=== PATIENT | male | born 1930 | race Caucasian/White ===

== ENCOUNTER 2017-06-18 09:41 | Inpatient (IN) | payer OTHER ==
[~2017-06-18] VITALS: Ht 180.3 cm; Wt 123.0 kg
--- NOTE | ~2017-06-18 | EKG ---
[address] [address] ELECTROCARDIOGRAM REPORT Name: DELORIS HARRIS Room #: 420-P ADM IN M.R.#: [id number] Admission: 06/18/17 Attend Phys: Anderson Lawrence Discharge: Date of : 30 Report #: [id number] THIS REPORT FOR: //name// [facility] ED Test Date: 2017-06-18 Test Time: 09:43:15 Pat Name: DELORIS HARRIS Department: Room: [facility] Gender: M Information Assurance Engineer: CHEKO : 1930 Requested By: Lisa Cunningham Order Number: [id number] MD: Krystian Childs Measurements Intervals [place] Rate: 84 P: SD: QRS: -20 QRSD: 95 T: 56 QT: 381 QTc: 451 Interpretive Statements Atrial fibrillation Borderline left axis deviation Anterior infarct, old Compared to ECG 02/12/2015 16:44:02 No significant changes Electronically Signed On 06-18-2017 22:36:43 CDT by Krystian Childs [email or web address] <ELECTRONICALLY SIGNED> By: Krystian Childs MD 06/18/17 2236 2 2 Krystian Childs MD /SUNSHINE
[~2017-06-18 09:41] MED LIST: ASPIRIN EC325 M1 PO; ATORVASTATIN CA40 MG PO; B-12 DOTS500 MCG PO; CLOPIDOGREL75 MG PO; COLACE100 MG PO; COREG25 MG PO; COZAAR 50 MG TA50 M2 PO; CYCLOBENZAPRINE5 MG PO; DULCOLAX5 MG PO; ENOXAPARIN30 MG/0.1 SUBQ; FLOMAX0.4 MG PO; FOLIC ACID1 MG PO; HYDROCODON-ACE1 EAC7 PO; LASIX 40 MG TAB40 M2 PO; LEVEMIR SUBQ; LISINOPRIL20 MG PO; LOPRESSOR50 PO; MIRALAX17 GM PO; NORVASC10 MG PO; NOVOLOG100 UNIT/1 SUBQ; PEPCID20 MG PO; POTASSIUM20 PO; PROTONIX40 M1 PO; REGLAN 10 MG TA10 MG PO; VITAMIN B-1100 M1 PO; VITAMIN B-12500 MCG PO; ZOLOFT25 MG PO
[2017-06-18 09:52] VITALS: BP 148/80
[2017-06-18 10:16] LABS: HEMATOCRIT 38.4 % (42.0-52.0); HEMOGLOBIN 12.6 gm/dL (14.0-18.0); MCHC 32.9 g/dL (28.0-37.0); MCV 91.1 fL (80.0-100.0); RBC 4.21 mil/uL (4.50-6.00); RDW 15.5 % (10.5-14.5); WBC 10.4 thou/uL (4.0-11.0)
[2017-06-18 10:38] LABS: CREATININE 1.8 mg/dL (0.7-1.3); POTASSIUM 4.3 mmol/L (3.5-5.1)
[2017-06-18 10:46] LABS: ALBUMIN 3.3 g/dL (3.4-5.0); TOTAL BILIRUBIN 0.7 mg/dL (<0.1-1.0); TOTAL PROTEIN 6.1 g/dL (6.4-8.2); TROPONIN-I 0.04 ng/mL (<0.04-0.07)
[2017-06-18 14:01] VITALS: BP 146/78
[2017-06-18 14:40] VITALS: BP 159/81
[2017-06-18 15:02] VITALS: BP 177/90
[2017-06-18 19:27] VITALS: BP 182/86
[2017-06-19 03:19] VITALS: BP 127/72
[2017-06-19 07:01] LABS: ALBUMIN 3.1 g/dL (3.4-5.0); CALCIUM 8.5 mg/dL (8.5-10.1); CREATININE 1.8 mg/dL (0.7-1.3); PHOSPHORUS 3.9 mg/dL (2.5-4.9); POTASSIUM 3.8 mmol/L (3.5-5.1); TROPONIN-I 0.04 ng/mL (<0.04-0.07)
[2017-06-19 08:26] VITALS: BP 157/75
[2017-06-19 17:19] VITALS: BP 164/88
[2017-06-19 20:45] VITALS: BP 152/76
[2017-06-20 04:07] VITALS: BP 163/82
[2017-06-20 06:24] LABS: ALBUMIN 3.1 g/dL (3.4-5.0); CALCIUM 8.5 mg/dL (8.5-10.1); CREATININE 1.9 mg/dL (0.7-1.3); PHOSPHORUS 3.4 mg/dL (2.5-4.9); POTASSIUM 3.8 mmol/L (3.5-5.1)
[2017-06-20 08:36] VITALS: BP 138/78
[2017-06-20] MEDS ORDERED: VANCOMYCIN HCL10 GM PO (10:29)
[2017-06-20] MEDS ORDERED: ACETAMINOPHEN325 M1 PO (10:30)
[2017-06-20] MEDS ORDERED: LASIX 40 MG TAB40 M1 PO (10:30)
[2017-06-20] MEDS ORDERED: MIRALAX17 GM PO (10:31)
[2017-06-20 17:25] VITALS: BP 187/92
[2017-06-20 19:33] VITALS: BP 151/74
[2017-06-21 07:14] VITALS: BP 174/79
[2017-06-21 12:15] VITALS: BP 155/80
[2017-06-21 14:55] VITALS: BP 174/79
[2017-06-21 20:19] VITALS: BP 167/77
[2017-06-22 04:34] VITALS: BP 163/87
[2017-06-22 08:27] VITALS: BP 162/92
== END 2017-06-22 16:51 | DRG 371 ==
LOC: ER 09:41 → EROBS 12:38 → 4E 12:38 → EROBS 12:45 → 4E 14:40
PROVIDERS: Hospitalist; Physician Assistant
DX: A04.72 Enterocolitis due to Clostridium difficile, not specified as recurrent (principal); I50.23 Acute on chronic systolic (congestive) heart failure; I13.0 Hypertensive heart and chronic kidney disease with heart failure and stage 1 through stage 4 chronic kidney disease, or unspecified chronic kidney disease; E11.22 Type 2 diabetes mellitus with diabetic chronic kidney disease; N18.3 Chronic kidney disease, stage 3 (moderate); E78.5 Hyperlipidemia, unspecified; I48.91 Unspecified atrial fibrillation; F03.90 Unspecified dementia, unspecified severity, without behavioral disturbance, psychotic disturbance, mood disturbance, and anxiety; Z79.4 Long term (current) use of insulin; Z79.01 Long term (current) use of anticoagulants; I25.2 Old myocardial infarction; Z90.49 Acquired absence of other specified parts of digestive tract; Z85.028 Personal history of other malignant neoplasm of stomach; Z79.899 Other long term (current) drug therapy; Z91.19 Patient's noncompliance with other medical treatment and regimen
CPT/HCPCS: 10084

== ENCOUNTER → 2017-06-26 | Emergency (ER) | payer OTHER ==
[~2017-06-26] VITALS: Ht 180.3 cm; Wt 117.9 kg
[~2017-06-26] MED LIST changes: +ACETAMINOPHEN325 M1 PO; +LASIX 40 MG TAB40 M1 PO; +NORCO 5-325 TA1 EACH PO; +ROBITUSSIN100 MG/53 PO; +VANCOMYCIN HCL10 GM PO
--- NOTE | ~2017-06-26 | EKG ---
[place] [address] [facility] [place] [address] ELECTROCARDIOGRAM REPORT Name: DELORIS HARRIS Gabby [id number] Admission: 06/26/17 Attend Phys: Discharge: Date of : 30 Report #: [id number] THIS REPORT FOR: //name// [facility] ED Test Date: 2017-06-26 Test Time: 19:42:55 Pat Name: DELORIS HARRIS Department: Room: Gender: M Crystalizer Operator: [id number] : 1930 Requested By: Aaliyah Funk Order Number: [id number] MD: Krystian Childs Measurements Intervals [place] Rate: 50 P: ME: QRS: -13 QRSD: 110 T: 103 QT: 419 QTc: 382 Interpretive Statements Atrial fibrillation Inferior infarct, old Anterior infarct, old Lateral leads are also involved Compared to ECG 06/18/2017 09:43:15 No significant changes Electronically Signed On 06-26-2017 21:24:21 CDT by Krystian Childs [email or web address] <ELECTRONICALLY SIGNED> By: Krystian Childs MD 06/26/172123 41 41 Krystian Childs MD /SUNSHINE
[2017-06-26 20:17] LABS: HEMOGLOBIN 11.6 gm/dL (14.0-18.0); MCH 30.7 pg (26.0-34.0); MCV 90.3 fL (80.0-100.0); PLATELET COUNT 174 thou/uL (150-400); RBC 3.77 mil/uL (4.50-6.00); RDW 15.3 % (10.5-14.5); WBC 6.8 thou/uL (4.0-11.0)
[2017-06-26 20:20] LABS: MANUAL DIFF YES
[2017-06-26 20:27] LABS: ANION GAP 6 mmol/L (7-16); BUN 26 mg/dL (7-18); CHLORIDE 108 mmol/L (98-107); CO2 29 mmol/L (21-32); GLUCOSE 136 mg/dL (74-106); POTASSIUM 4.1 mmol/L (3.5-5.1); SODIUM 143 mmol/L (136-145)
[2017-06-26 20:36] LABS: ALBUMIN 3.1 g/dL (3.4-5.0); ALKALINE PHOSPHATASE 127 U/L (46-116); MAGNESIUM 2.3 mg/dL (1.8-2.4); SGOT 17 U/L (15-37); SGPT 21 U/L (30-65); TOTAL BILIRUBIN 0.4 mg/dL (<0.1-1.0); TOTAL PROTEIN 5.6 g/dL (6.4-8.2); TROPONIN-I < 0.04 ng/mL (<0.04-0.07)
[2017-06-26 20:44] LABS: ABSOLUTE NEUTROPHILS 4.2 thou/uL (1.4-8.2); TOTAL CELL COUNT 100
== END ==
LOC: ER 19:37
PROVIDERS: Nurse Practitioner Family
DX: R07.89 Other chest pain (principal); I12.9 Hypertensive chronic kidney disease with stage 1 through stage 4 chronic kidney disease, or unspecified chronic kidney disease; E11.22 Type 2 diabetes mellitus with diabetic chronic kidney disease; N18.3 Chronic kidney disease, stage 3 (moderate); F41.9 Anxiety disorder, unspecified; K46.9 Unspecified abdominal hernia without obstruction or gangrene; M25.551 Pain in right hip; F03.90 Unspecified dementia, unspecified severity, without behavioral disturbance, psychotic disturbance, mood disturbance, and anxiety; I48.91 Unspecified atrial fibrillation; E78.00 Pure hypercholesterolemia, unspecified; I25.2 Old myocardial infarction; Z85.028 Personal history of other malignant neoplasm of stomach; Z91.14 Patient's other noncompliance with medication regimen; Z98.890 Other specified postprocedural states; Z79.4 Long term (current) use of insulin

== ENCOUNTER 2017-08-14 06:20 | Emergency (ER) | payer OTHER ==
[~2017-08-14] VITALS: Ht 180.3 cm; Wt 122.5 kg
--- NOTE | ~2017-08-14 | EKG ---
[address] [address] ELECTROCARDIOGRAM REPORT Name: KIMBERLYDELORIS Gabby Room #: DEP [place]#: [id number] Admission: 08/14/17 Attend Phys: Discharge: 08/14/17 Date of : 30 Report #: [id number] THIS REPORT FOR: //name// [facility] ED Test Date: 2017-08-14 Test Time: 06:22:35 Pat Name: DELORIS HARRIS Department: Room: Gender: Neon Technician: 99 : 1930 Requested By: Riki Driver Order Number: [id number] MD: Krystian Childs Measurements Intervals [place] Rate: 57 P: AR: QRS: 52 QRSD: 119 T: 67 QT: 434 QTc: 423 Interpretive Statements Atrial fibrillation Nonspecific intraventricular conduction delay Anterior infarct, old Electronically Signed On 08-15-2017 12:21:10 ENGINEERING GROUP LEADER by Krystian Childs [email or web address] <ELECTRONICALLY SIGNED> By: Krystian Childs MD 08/15/17 1221 0622 06 Krystian Childs MD /EPI
[~2017-08-14 06:20] MED LIST changes: +AMLODIPINE BESYL5 M1 PO; +CLEARLAX17 GM PO; +DEMADEX 2020 MG/1 TA PO; +KLOR-CON 1010 MEQ PO; +LASIX 20 MG TAB20 MG PO; +PERCOCET PO
[2017-08-14] MEDS ORDERED: GLUCOPHAGE850 MG PO (06:44)
[2017-08-14 07:33] LABS: ABSOLUTE NEUTROPHILS 6.3 thou/uL (1.4-8.2); BASOPHILS 0.4 % (0.0-2.0); EOSINOPHILS 2.7 % (0.0-3.0); HEMATOCRIT 38.2 % (42.0-52.0); HEMOGLOBIN 12.2 gm/dL (14.0-18.0); LYMPHOCYTES 14.9 % (24.0-44.0); MCH 28.7 pg (26.0-34.0); MCV 89.7 fL (80.0-100.0); MONOCYTES 10.5 % (1.0-8.0); PLATELET COUNT 179 thou/uL (150-400); POLYS 71.5 % (36.0-66.0); RBC 4.26 mil/uL (4.50-6.00); RDW 16.2 % (10.5-14.5); WBC 8.8 thou/uL (4.0-11.0)
[2017-08-14 07:42] LABS: MANUAL DIFF NO
[2017-08-14 07:50] LABS: ANION GAP 7 mmol/L (7-16); BUN 25 mg/dL (7-18); CALCIUM 9.1 mg/dL (8.5-10.1); CHLORIDE 105 mmol/L (98-107); CO2 31 mmol/L (21-32); CREATININE 1.6 mg/dL (0.7-1.3); GLUCOSE 111 mg/dL (74-106); POTASSIUM 3.2 mmol/L (3.5-5.1); SODIUM 143 mmol/L (136-145)
[2017-08-14 07:58] LABS: APTT 24.9 Seconds (24.5-32.8); INR 1.1; PROTIME 10.9 Seconds (9.3-11.4)
[2017-08-14 07:59] LABS: ALBUMIN 3.4 g/dL (3.4-5.0); ALKALINE PHOSPHATASE 137 U/L (46-116); MAGNESIUM 1.8 mg/dL (1.8-2.4); SGOT 17 U/L (15-37); SGPT 14 U/L (30-65); TOTAL BILIRUBIN 0.8 mg/dL (<0.1-1.0); TOTAL PROTEIN 6.5 g/dL (6.4-8.2); TROPONIN-I < 0.04 ng/mL (<0.06)
[2017-08-14] MEDS ORDERED: ZOFRAN ODT4 MG DISSOLVE (08:16)
[2017-08-15] MEDS ORDERED: NYAMYC15 GM TOP (22:14)
== END 2017-08-14 11:06 ==
LOC: ER 06:20
PROVIDERS: Emergency Medicine
DX: I25.10 Atherosclerotic heart disease of native coronary artery without angina pectoris (principal); K43.9 Ventral hernia without obstruction or gangrene; E11.22 Type 2 diabetes mellitus with diabetic chronic kidney disease; I12.9 Hypertensive chronic kidney disease with stage 1 through stage 4 chronic kidney disease, or unspecified chronic kidney disease; N18.3 Chronic kidney disease, stage 3 (moderate); E78.5 Hyperlipidemia, unspecified; I48.91 Unspecified atrial fibrillation; F03.90 Unspecified dementia, unspecified severity, without behavioral disturbance, psychotic disturbance, mood disturbance, and anxiety; Z86.2 Personal history of diseases of the blood and blood-forming organs and certain disorders involving the immune mechanism; Z90.49 Acquired absence of other specified parts of digestive tract; Z79.4 Long term (current) use of insulin

== ENCOUNTER 2017-08-15 17:03 | Emergency (ER) | payer OTHER ==
[~2017-08-15] VITALS: Ht 180.3 cm; Wt 117.9 kg
[~2017-08-15 17:03] MED LIST changes: +GLUCOPHAGE850 MG PO; +ZOFRAN ODT4 MG DISSOLVE
[2017-08-15 20:12] LABS: ABSOLUTE NEUTROPHILS 6.5 thou/uL (1.4-8.2); BASOPHILS 0.6 % (0.0-2.0); EOSINOPHILS 2.5 % (0.0-3.0); HEMATOCRIT 37.6 % (42.0-52.0); HEMOGLOBIN 12.1 gm/dL (14.0-18.0); LYMPHOCYTES 14.3 % (24.0-44.0); MANUAL DIFF NO; MCH 28.6 pg (26.0-34.0); MCHC 32.1 g/dL (28.0-37.0); MCV 89.1 fL (80.0-100.0); MONOCYTES 9.5 % (1.0-8.0); PLATELET COUNT 178 thou/uL (150-400); POLYS 73.1 % (36.0-66.0); RBC 4.21 mil/uL (4.50-6.00); RDW 15.7 % (10.5-14.5); WBC 8.9 thou/uL (4.0-11.0)
[2017-08-15 20:15] LABS: CALCIUM 9.5 mg/dL (8.5-10.1); CREATININE 1.6 mg/dL (0.7-1.3); POTASSIUM 3.7 mmol/L (3.5-5.1)
[2017-08-15 20:18] LABS: ABG SAMPLE TYPE ARTERIAL; BE(vivo) 2.1 mmol/L (-2 to +3); O2(CT) 16.7 mL/dL (15.0-23.0); O2Hb 96.7 % (92.0-98.0); PCO2 43.2 mmHg (35.0-45.0); PO2 101.9 mmHg (80.0-100.0); pH 7.413 (7.360-7.450); sO2 97.7 % (92.0-98.0); tCO2 28.3 mmol/L (24.0-30.0)
[2017-08-15 20:19] LABS: STICK SITE LRA
[2017-08-15 20:21] LABS: ALBUMIN 3.3 g/dL (3.4-5.0); DIRECT BILIRUBIN 0.1 mg/dL (<0.1-0.3); TOTAL BILIRUBIN 0.5 mg/dL (<0.1-1.0); TOTAL PROTEIN 6.3 g/dL (6.4-8.2)
[2017-08-15] MEDS ORDERED: NYAMYC15 GM TOP (22:14)
[2017-08-20] MEDS ORDERED: SENNA8.6 MG PO (13:16)
[2017-08-20] MEDS ORDERED: COLACE100 MG PO (13:16)
[2017-08-20] MEDS ORDERED: DEMADEX20 MG PO (13:21)
== END 2017-08-15 22:30 ==
LOC: ER 17:03
PROVIDERS: Emergency Medicine
DX: R07.89 Other chest pain (principal); G89.29 Other chronic pain; R10.10 Upper abdominal pain, unspecified; R11.0 Nausea; I12.9 Hypertensive chronic kidney disease with stage 1 through stage 4 chronic kidney disease, or unspecified chronic kidney disease; N18.3 Chronic kidney disease, stage 3 (moderate); E11.22 Type 2 diabetes mellitus with diabetic chronic kidney disease; I48.91 Unspecified atrial fibrillation; I16.0 Hypertensive urgency; F03.90 Unspecified dementia, unspecified severity, without behavioral disturbance, psychotic disturbance, mood disturbance, and anxiety; E78.5 Hyperlipidemia, unspecified; Z90.49 Acquired absence of other specified parts of digestive tract; Z79.4 Long term (current) use of insulin; Z86.2 Personal history of diseases of the blood and blood-forming organs and certain disorders involving the immune mechanism

== ENCOUNTER 2017-08-29 02:06 | Emergency (ER) | payer OTHER ==
[~2017-08-29] VITALS: Ht 180.3 cm; Wt 108.9 kg
[~2017-08-29 02:06] MED LIST changes: +DEMADEX20 MG PO; +NYAMYC15 GM TOP; +SENNA8.6 MG PO
[2017-08-29 03:22] LABS: HEMATOCRIT 36.5 % (42.0-52.0); HEMOGLOBIN 11.8 gm/dL (14.0-18.0); MCH 28.8 pg (26.0-34.0); MCHC 32.3 g/dL (28.0-37.0); MCV 89.4 fL (80.0-100.0); PLATELET COUNT 191 thou/uL (150-400); RBC 4.09 mil/uL (4.50-6.00); RDW 16.3 % (10.5-14.5); WBC 7.3 thou/uL (4.0-11.0)
[2017-08-29 03:30] LABS: CALCIUM 8.7 mg/dL (8.5-10.1); CREATININE 1.5 mg/dL (0.7-1.3); POTASSIUM 3.5 mmol/L (3.5-5.1)
[2017-08-29 03:36] LABS: DIRECT BILIRUBIN 0.2 mg/dL (<0.1-0.3); TOTAL BILIRUBIN 0.6 mg/dL (<0.1-1.0); TOTAL PROTEIN 5.9 g/dL (6.4-8.2)
[2017-08-29 03:43] LABS: MANUAL DIFF YES
[2017-08-29 04:16] LABS: ANISOCYTOSIS 1+; POLYCHROMASIA OCCASIONAL; TOTAL CELL COUNT 100
[2017-08-29] MEDS ORDERED: BISACODYL SUPP10 MG RECTAL (04:59)
== END 2017-08-29 07:36 | disposition home or self-care (01) ==
LOC: ER 02:06
PROVIDERS: Emergency Medicine
DX: R10.31 Right lower quadrant pain (principal); K59.00 Constipation, unspecified; E11.9 Type 2 diabetes mellitus without complications; F03.90 Unspecified dementia, unspecified severity, without behavioral disturbance, psychotic disturbance, mood disturbance, and anxiety; C16.9 Malignant neoplasm of stomach, unspecified; I48.91 Unspecified atrial fibrillation; I12.9 Hypertensive chronic kidney disease with stage 1 through stage 4 chronic kidney disease, or unspecified chronic kidney disease; N18.3 Chronic kidney disease, stage 3 (moderate); E78.5 Hyperlipidemia, unspecified; I25.2 Old myocardial infarction; K81.9 Cholecystitis, unspecified; Z90.49 Acquired absence of other specified parts of digestive tract

== ENCOUNTER 2017-11-08 07:21 | Emergency (ER) | payer OTHER ==
[~2017-11-08] VITALS: Ht 182.9 cm; Wt 127.0 kg
[~2017-11-08 07:21] MED LIST changes: +BISACODYL SUPP10 MG RECTAL
[2017-11-08 08:41] VITALS: BP 153/92
== END 2017-11-08 08:42 ==
LOC: ER 07:21
DX: S00.03XA Contusion of scalp, initial encounter (principal); I12.9 Hypertensive chronic kidney disease with stage 1 through stage 4 chronic kidney disease, or unspecified chronic kidney disease; E11.22 Type 2 diabetes mellitus with diabetic chronic kidney disease; N18.3 Chronic kidney disease, stage 3 (moderate); Z79.4 Long term (current) use of insulin; E78.5 Hyperlipidemia, unspecified; I48.91 Unspecified atrial fibrillation; Z90.49 Acquired absence of other specified parts of digestive tract; V87.8XXA Person injured in other specified noncollision transport accidents involving motor vehicle (traffic), initial encounter; Y93.89 Activity, other specified; Y92.89 Other specified places as the place of occurrence of the external cause; Y99.8 Other external cause status

== ENCOUNTER 2017-11-17 09:50 | Inpatient (IN) | payer OTHER ==
[~2017-11-17] VITALS: Ht 165.1 cm; Wt 123.6 kg
--- NOTE | ~2017-11-17 | HC ---
[facility] [place] [address] CONSULTATION Name: DELORIS HARRIS JR Room #: 207-P [facility] IN .R.#: [id number] Admission: 11/17/17 Attend Phys: Marin Alford MD Discharge: Date of : 30 Report #: [id number] THIS REPORT FOR: //name// CC: Marin Hoyos REASON FOR CONSULTATION: I was asked to evaluate concerning sepsis. HISTORY OF PRESENT ILLNESS: The patient is an 87-year-old assisted resident who presents with a report of increasing shortness of breath associated with cough. He had some nausea and vomiting. No reported diarrhea. He has had some left lower quadrant abdominal discomfort. No recent antibiotics. No travel. The patient was a poor historian. Apparently recently fell, contusion to his right periorbital soft tissues. PAST MEDICAL HISTORY: Hypertension, diabetes, dementia, gastric cancer, atrial fibrillation, anemia, chronic kidney disease, hyperlipidemia, coronary artery disease, cholecystitis, and appendectomy. ALLERGIES: None known. MEDICATIONS: Included Zofran, Colace, senna, Demadex and Dulcolax. Also reported folic acid, aspirin, Flomax, insulin, multivitamin, Zoloft, Flexeril, Lipitor, Plavix, Cozaar, Coreg, Protonix, [place], and Glucophage. FAMILY HISTORY: Noncontributory. SOCIAL HISTORY: Nonsmoker, no significant alcohol intake. REVIEW OF SYSTEMS: The patient reports tenderness around his eye, lost one of his lower front teeth, no definite chest pain. Abdominal discomfort, no diarrhea, some vomiting, anorexia, no dysuria, he is incontinent of urine. PHYSICAL EXAMINATION: VITAL SIGNS: Temperature is 102.3, heart rate 98, respiratory rate 16, blood pressure 128/88, he is on 4 liters of oxygen per nasal cannula with an ABG showing a pO2 of 93, pCO2 of 37, pH 7.4. GENERAL: He was alert and cooperative. He was a bit confused, although could tell me he was from a assisted. HEENT: Remarkable for fractured tooth in the left lower anterior as well as contusion to his left periorbital soft tissues. NECK: Supple. LUNGS: Few crackles in the left base posteriorly. No consolidation. HEART: Regular, did not appreciate any murmur. ABDOMEN: Moderately obese, mild tenderness in the left lower quadrant. No rebound or guarding. He had significant intertrigo to his groin and perineum. GENITOURINARY: He [place] [address] CONSULTATION Name: DELORIS HARRIS Room #: 207-P [facility] IN ..#: [id number] Admission: 11/17/17 Attend Phys: Marin Alford MD Discharge: Date of : 30 Report #: [id number] EXTREMITIES: Otherwise unremarkable. NEUROLOGIC: Nonfocal. LABORATORY STUDIES: Sodium 143, potassium 3.4, bicarbonate 27, creatinine 1.6. Liver function test normal, although bilirubin of 2.2. Hemoglobin 11.5, platelet count 112,000, WBC 17.1 with 71% segs, 19% bands. BNP was 9997. Chest x-ray, left lower lobe infiltrate. Influenza antigen negative. Procalcitonin 0.5. IMPRESSION: An 87-year-old with sepsis, findings of some confusion, hypoxia, leukocytosis, left lower lobe infiltrate, some abdominal tenderness and intertrigo. Leukocytosis, thrombocytopenia, mild increase in his bilirubin, duration of which is not clear, healthcare-associated pneumonia versus influenza versus gastroenteritis or urinary tract source being entertained. Recommend screening for influenza with viral respiratory panel. Check blood cultures, urinalysis and urine culture. Place a Mcghee catheter. Treat his intertrigo. Follow up chest x-ray. Check an abdominal x-ray tonight. If symptoms persist in the abdomen, need a CT scan. Continue antibiotic coverage with vancomycin, Zosyn, Tamiflu, and fluconazole. <ELECTRONICALLY SIGNED> By: Riki Chapa MD 11/18/17 0832 [id number] Riki Chapa MD /nt
--- NOTE | ~2017-11-17 | EKG ---
[place] [address] [facility] [place] [address] ELECTROCARDIOGRAM REPORT Name: DELORIS HARRIS Room #: 207-P ADM IN M.R.#: [id number] Admission: 11/17/17 Attend Phys: Marin Alford MD Discharge: Date of : 30 Report #: [id number] THIS REPORT FOR: //name// [facility] ED Test Date: 2017-11-17 Test Time: 10:54:02 Pat Name: DELORIS HARRIS Department: Room: 207 Gender: M Kitchen Designer: [facility] : 1930 Requested By: Jonathan Barrientos Order Number: [id number] MD: Chano Jasso Measurements Intervals [place] Rate: 103 P: SC: QRS: -8 QRSD: 106 T: 4 QT: 338 QTc: 443 Interpretive Statements Atrial fibrillation Poor R wave progression Nonspecific ST and T wave abnormality Compared to ECG 08/20/2017 10:32:30 Sinus rhythm no longer present Nonspecific change in the ST and T-wave segments Electronically Signed On 11-18-2017 7:52:58 LICENSED CLUB MANAGER by Chano Jasso [email or web address] <ELECTRONICALLY SIGNED> By: Chano Jasso MD, [facility] 11/18/17 0752 1054 1054 Chano Jasso MD, [facility] /EPI
--- NOTE | ~2017-11-17 | HC ---
[facility] [place] [address] CONSULTATION Name: KIMBERLYDELORIS Pierre Room #: 202-P [facility]..#: [id number] Admission: 11/17/17 Attend Phys: Marin Alford MD Discharge: 11/25/17 Date of : 30 Report #: [id number] THIS REPORT FOR: //name// CC: Marin Hoyos DATE OF SERVICE: 11/18/2017 NEPHROLOGY CONSULTATION REASON FOR CONSULTATION: Elevated creatinine level. HISTORY OF PRESENT ILLNESS: This is an 87-year-old male who lives in a local custodial. He presented with dyspnea yesterday. Upon arrival in the Emergency Room yesterday morning, he had a fever to 102.3 and he remained febrile throughout most of the day yesterday. He got some broad-spectrum antibiotics. He got put on oxygen. It was thought he had some infiltrate on his chest x-ray. Today, he has been afebrile. So far, blood and urine cultures are negative. Viral studies looking for influenza and other markers are pending at this time. We are asked to see him for an elevated creatinine level. He came in with creatinine level of 1.6. Today, it is up to 2.3. The patient is not a very good historian. He does not remember ever being told about kidney problems in the past. 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 He does carry a diagnosis of some dementia, so much of this, otherwise, is obtained from his rather extensive medical records. Looking back 3 years, he has had multiple hospitalizations here at [facility]. He has always had an elevated creatinine level and he tends to run in the 1.5 to 1.7 range. He has been up to 2 on a couple of different occasions. He is up to 2.3 today. He carries a long history of hypertension as well as some type 2 diabetes. He has a urinalysis which shows proteinuria, and in fact, he has had proteinuria on dipstick on every urinalysis he has had here over the past several years. Proteinuria has never been quantified. In addition, I reviewed a recent CT scan done last fall in 05/2017. He has a dramatically atrophic left kidney. Right kidney also was somewhat thinned, but not nearly as atrophic as the left. He has numerous acquired cysts in each kidney. He has extensive atherosclerotic vascular disease based on reviewing of his aorta. The patient is unaware of nephrolithiasis, urinary tract infections or hematuria. No other proteinuria. PAST MEDICAL HISTORY: Long-standing dementia and he lives in a local care center. He has had a history of hypertension as well as some type 2 diabetes, duration is unknown. He has a history of coronary artery disease, congestive heart failure, prior urinary tract infections as well as an admission for pneumonia. [address] [address] CONSULTATION Name: KIMBERLYDELORIS Gabby KOTHARI Room #: 202-P DIS IN .R.#: [id number] Admission: 11/17/17 Attend Phys: Marin Alford MD Discharge: 11/25/17 Date of : 30 Report #: [id number] MEDICATIONS: On admission appear to include torsemide 20 mg daily, carvedilol 12.5 mg b.i.d., losartan 50 mg daily, metformin 850 mg b.i.d., pantoprazole 40 mg daily, cyanocobalamin daily, Plavix 75 mg daily, atorvastatin 40 mg daily, Flexeril 10 mg p.r.n., sertraline 25 mg daily, thiamine 100 mg daily, both long-acting and short-acting insulin, tamsulosin 0.4 mg daily, aspirin 325 mg daily, folic acid 1 mg daily and some p.r.n. medications. ALLERGIES: No known medical allergies. FAMILY HISTORY: Unavailable. SOCIAL HISTORY: The patient has been in the custodial, duration is unknown. 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 REVIEW OF SYSTEMS: He says his appetite is poor. He gets nauseated when he eats too much. Denies vomiting. Unaware of diarrhea. Apparently, he was having difficulty voiding. Currently, he has a Mcghee catheter in place. PHYSICAL EXAMINATION: GENERAL: Elderly, demented gentleman in no acute distress at this time. VITAL SIGNS: Most recent blood pressure 144/68, heart rate 65, temperature 98.0, respiratory rate 18 and oxygen saturation 97%. HEENT EXAMINATION: Shows pupils are 3 mm and reactive. Sclerae nonicteric. Oral mucosa is dry. NECK: Neck veins are not distended. Neck is supple. CHEST: Shows fairly good excursion bilaterally. I did not hear much in the way of rales, rhonchi or wheezes at this time. HEART: Irregular rhythm and rate. Monitor shows atrial fibrillation. ABDOMEN: Obese. He has a ventral hernia in the supraumbilical location. It is mildly tender, although certainly there is no guarding. Otherwise, mild diffuse abdominal tenderness. I am unable to palpate organomegaly or masses. EXTREMITIES: Show no peripheral edema. He has extensive intertriginous tinea, evident mostly in the inguinal areas. DIAGNOSTIC DATA: Chest x-ray is reviewed, which shows mild diffuse infiltrates. I also reviewed his CT scan from 05/2017 and pertinent findings as noted above. LABORATORY DATA: Lab from today, sodium 140, potassium 3.7, chloride 104, bicarbonate 23, BUN 36, creatinine 2.3, glucose 242 and calcium 8.6. Magnesium 1.7. Total protein 6.1. Albumin 3.0. Troponin 0.05. White count 18.1, hemoglobin 10.7, hematocrit 33.1 and platelets 94,000. Urinalysis showed specific gravity 1.025, pH 5.0, protein 2+, trace ketones and trace blood, with a fairly unremarkable microscopic exam. Blood gas on admission, pH of 7.41, pCO2 of 37.6, pO2 of 93.4 and a lactate at that time of 3.39. [address] [address] CONSULTATION Name: DELORIS HARRIS Room #: 202-P [facility] IN [facility].#: [id number] Admission: 11/17/17 Attend Phys: Marin Alford MD Discharge: 11/25/17 Date of : 30 Report #: [id number] ASSESSMENT: 1. Acute kidney injury. He has had half a point rise in his creatinine over his baseline. He came in febrile and sick, which appears to be all a respiratory component. I think this is only hemodynamic change related to his acute illness. He has not received nephrotoxins that I can find. His last contrast exposure appears to be months ago. I would note he was on some metformin and had an elevated lactate and the metformin has appropriately been held, so the lactate should clear from that. He needs intake of fluid to maintain adequate volume status. Urine output needs to be monitored. I do not think he needs additional diuresis at this time. He should stabilize readily. 2. Chronic kidney disease stage 3 with an atrophic left kidney, somewhat thin cortex on the right kidney and numerous acquired cysts. These are all consistent with very long-standing changes. This is also borne out by looking at his labs. Again, long-term blood pressure management is fine. He has okay to stay on the losartan. We do need to quantify proteinuria. 3. Chronic atrial fibrillation. 4. Acute pulmonary infection with fever and infiltrate, on broad-spectrum antibiotics, although it may well be viral. He does not appear to be in extremis at this time. He is oxygenating better as well as the fact that his fever is down. 5. Long-standing diabetes mellitus. 6. Long-standing hypertension. PLAN: 1. Obviously continue treatment for his pulmonary symptoms. 2. We will follow intake and output. 3. Repeat labs as I expect his creatinine level will drop back down to its baseline. 4. Check urine protein-creatinine ratio. 5. We do not need to image his kidneys more as they were imaged just 6 months ago with the findings as noted above. 6. We will follow along with the care of this patient. <ELECTRONICALLY SIGNED> By: Deep Main MD 12/02/17 1142 193 0113 Albert Kerr MD /nt
--- NOTE | ~2017-11-17 | EKG ---
[place] [address] [facility] [place] [address] ELECTROCARDIOGRAM REPORT Name: DLEORIS HARRIS Room #: 202-P ADM IN M.R.#: [id number] Admission: 11/17/17 Attend Phys: Marin Alford MD Discharge: Date of : 30 Report #: [id number] THIS REPORT FOR: //name// [facility] Test Date: 2017-11-22 Test Time: 14:37:00 Pat Name: DELORIS HARRIS Department: Room: 202 Gender: M Publications Inspector: [email or web address] : 1930 Requested By: Marin Alford Order Number: [id number] MD: Chano Jasso Measurements Intervals [place] Rate: 54 P: [place]: QRS: 29 QRSD: 97 T: 60 QT: 436 QTc: 414 Interpretive Statements Atrial fibrillation Poor R wave progression Nonspecific intraventricular conduction delay Compared to ECG 11/17/2017 10:54:02 Heart rate has slowed Electronically Signed On 11-24-2017 12:58:24 CDT by Chano Jasso [email or web address] <ELECTRONICALLY SIGNED> By: Chano Jasso MD, [facility] 11/24/17 1258 143 143 Chano Jasso MD, [facility] /EPI
--- NOTE | ~2017-11-17 | 2DMMODE ---
[facility] [address] [place] [address] 2 D/M-MODE ECHOCARDIOGRAM Name: DELORIS HARRIS JR Room #: 207-P [facility] IN .#: [id number] Admission: 11/17/17 Attend Phys: Marin Alford, Discharge: Date of : 30 Date of Service: 11/18/17 [facility] Report #: [id number] THIS REPORT FOR: //name// APPROVED REPORT Study performed: 11/18/2017 10:04:28 EXAM: Comprehensive 2D, Doppler, and color-flow Echocardiogram Patient Location: Bedside Room #: [facility] Status: routine BSA: 2.33 HR: 73 bpm BP: 171/81 mmHg Rhythm: NSR Other Information Study Quality: Adequate Indications Diastolic heart failure, CAD, stent, Afib, CHF 2D Dimensions RVDd: 48.17 mm LVEF(%): 54.61 (>50%) IVSd: 13.54 (7-11mm) LVOT Diam: 20.70 (18-24mm) LVDd: 51.10 mm PWd: 13.15 (7-11mm) Ascending Ao: 34.23 (22-36mm) LVDs: 36.55 (25-40mm) Aortic Root: 36.87 mm Jean's LVEF: 54.61 % Volumes Left Atrial Volume (Systole) Single Plane 4CH: 96.36 mL Single Plane 2CH: 99.69 mL LA ESV Index: 45.00 mL/m2 Aortic Valve AoV Peak Cameron.: 1.33 m/s AO Peak Gr.: 7.05 mmHg LVOT Max P.47 mmHg LVOT Max V: 0.93 m/s ISAAK Vmax: 2.36 cm2 Mitral Valve E/A Ratio: 3.3 MV Decel. Time: 159.33 ms [facility] [place] [address] 2 D/M-MODE ECHOCARDIOGRAM Name: DELORIS HARRIS Room #: 207-P [facility] IN M.R.#: [id number] Admission: 11/17/17 Attend Phys: Marin Alford, Discharge: Date of : 30 Date of Service: 11/18/17 1100 Report #: [id number] MV E Max Cameron.: 1.19 m/s MV A Cameron.: 0.36 m/s MV PHT: 46.21 ms IVRT: 55.36 ms Pulmonary Valve PV Peak Cameron.: 0.72 m/s PV Peak Gr.: 2.05 mmHg Tricuspid Valve TR Peak Cameron.: 3.22 m/s RAP Estimate: 15.00 mmHg TR Peak Gr.: 41.56 mmHg PA Pressure: 57.00 mmHg Left Ventricle The left ventricle is normal size. There is normal LV segmental wall motion overall with mild distal septal apical slowing. Mild to moderate concentric left ventricular hypertrophy. Left ventricular systolic function is normal. LVEF is 60%. Severe diastolic dysfunction is present (restrictive filling). Right Ventricle Right ventricle is dilated. The right ventricular systolic function is low normal. Atria Left atrium is dilated. Right atrium is dilated. Aortic Valve Aortic valve leaflets are mildly thickened. No aortic regurgitation is present. There is no aortic valvular stenosis. Mitral Valve The mitral valve is normal in structure. Moderate mitral regurgitation. Tricuspid Valve The tricuspid valve is normal in structure. Mild to moderate tricuspid regurgitation. Estimated PAP is 55-60mmHg. Pulmonic Valve The pulmonary valve is normal in structure. There is no pulmonic valvular regurgitation. Great Vessels The aortic root is normal in size. The ascending aorta is normal in size. IVC is dilated and collapses <50% with [facility] [address] [place] [address] 2 D/M-MODE ECHOCARDIOGRAM Name: DELORIS HARRIS JR Room #: 207-P [facility] IN ..#: [id number] Admission: 11/17/17 Attend Phys: Marin Alford, Discharge: Date of : 30 Date of Service: 11/18/17 1100 Report #: [id number] inspiration. Pericardium Small loculated posterior fluid noted hemodynamically insignificant. Left and right pleural effusions noted. <Conclusion> The left ventricle is normal size. Mild to moderate concentric left ventricular hypertrophy. There is normal LV segmental wall motion overall with mild distal septal apical slowing. Right ventricle is dilated. The right ventricular systolic function is low normal. Left atrium is dilated. Right atrium is dilated. Aortic valve leaflets are mildly thickened. The mitral valve is normal in structure. Moderate mitral regurgitation with a narrow central jet. The tricuspid valve is normal in structure. Mild to moderate tricuspid regurgitation. Estimated PAP is 55-60mmHg. The pulmonary valve is normal in structure. Small loculated posterior fluid noted hemodynamically insignificant. Left and right pleural effusions noted. <ELECTRONICALLY SIGNED> By: Magdiel Rivera MD 11/18/17 1100 1100 1100 Magdiel Rivera MD /INF
[2017-11-17 09:51] VITALS: BP 189/88
[2017-11-17 10:25] LABS: BE(vivo) -0.8 mmol/L (-2 to +3); HCO3 23.5 mmol/L (22.0-26.0); PCO2 37.6 mmHg (35.0-45.0); PO2 93.4 mmHg (80.0-100.0); pH 7.413 (7.360-7.450); sO2 97.3 % (92.0-98.0)
[2017-11-17 10:32] LABS: HEMATOCRIT 35.1 % (42.0-52.0); HEMOGLOBIN 11.5 gm/dL (14.0-18.0); MCH 29.5 pg (26.0-34.0); MCHC 32.7 g/dL (28.0-37.0); MCV 90.3 fL (80.0-100.0); PLATELET COUNT 112 thou/uL (150-400); RBC 3.89 mil/uL (4.50-6.00); RDW 19.8 % (10.5-14.5); WBC 17.1 thou/uL (4.0-11.0)
[2017-11-17 10:40] LABS: CALCIUM 8.9 mg/dL (8.5-10.1); CREATININE 1.6 mg/dL (0.7-1.3); POTASSIUM 3.4 mmol/L (3.5-5.1)
[2017-11-17 10:43] LABS: INR 1.2
[2017-11-17 10:49] LABS: TOTAL BILIRUBIN 2.2 mg/dL (<0.1-1.0); TOTAL PROTEIN 6.1 g/dL (6.4-8.2); TROPONIN-I 0.05 ng/mL (<0.06)
[2017-11-17 10:52] LABS: ABSOLUTE NEUTROPHILS 15.4 thou/uL (1.4-8.2)
[2017-11-17 17:07] VITALS: BP 185/77
[2017-11-17 18:03] VITALS: BP 128/88
[2017-11-17 19:50] VITALS: BP 134/95
[2017-11-17 20:00] VITALS: BP 134/95
[2017-11-18 00:15] VITALS: BP 139/70
[2017-11-18 03:16] LABS: URINE BILIRUBIN NEGATIVE (Negative); URINE BLOOD TRACE (Negative); URINE CLARITY CLOUDY; URINE COLOR YELLOW; URINE GLUCOSE-RANDOM* NEGATIVE (Negative); URINE KETONES TRACE (Negative); URINE LEUKOCYTES NEGATIVE (Negative); URINE NITRITE NEGATIVE (Negative); URINE PROTEIN (DIPSTICK) 2+ (Negative); URINE SPECIFIC GRAVITY 1.025 (1.005-1.035); URINE UROBILINOGEN 0.2 E.U./dl (0.2-1.0)
[2017-11-18 04:13] LABS: AMORPHOUS URATES Many /LPF (None Seen); SQUAMOUS 0-3 Few /LPF (0-3)
[2017-11-18 04:14] LABS: BACTERIA None Seen /HPF (None Seen); CASTS None Seen /LPF (None Seen); URINE RBC 0-2 Rare /HPF (0-2); URINE WBC 0-5 Rare /HPF (0-5)
[2017-11-18 04:45] VITALS: BP 153/73
[2017-11-18 08:32] VITALS: BP 171/81
[2017-11-18 12:40] VITALS: BP 137/79
[2017-11-18 15:43] LABS: HEMATOCRIT 33.1 % (42.0-52.0); HEMOGLOBIN 10.7 gm/dL (14.0-18.0); MCH 29.8 pg (26.0-34.0); MCHC 32.4 g/dL (28.0-37.0); RDW 19.8 % (10.5-14.5); WBC 18.1 thou/uL (4.0-11.0)
[2017-11-18 15:52] LABS: PLATELET COUNT 94 thou/uL (150-400)
[2017-11-18] MEDS ORDERED: PROBIOTIC1 EAC1 PO (15:56)
[2017-11-18] MEDS ORDERED: DIFLUCAN200 MG PO (15:57)
[2017-11-18] MEDS ORDERED: NYAMYC15 GM TOP (15:58)
[2017-11-18 16:13] LABS: CALCIUM 8.6 mg/dL (8.5-10.1); CREATININE 2.3 mg/dL (0.7-1.3); MAGNESIUM 1.7 mg/dL (1.8-2.4); POTASSIUM 3.7 mmol/L (3.5-5.1)
[2017-11-18 16:14] LABS: ABSOLUTE NEUTROPHILS 15.6 thou/uL (1.4-8.2); ANISOCYTOSIS 1+
[2017-11-18 17:09] VITALS: BP 144/68
[2017-11-18 20:10] VITALS: BP 127/59
[2017-11-19 02:44] LABS: HEMATOCRIT 32.6 % (42.0-52.0); HEMOGLOBIN 10.6 gm/dL (14.0-18.0); MCH 29.9 pg (26.0-34.0); MCHC 32.6 g/dL (28.0-37.0); MCV 91.9 fL (80.0-100.0); RBC 3.54 mil/uL (4.50-6.00); RDW 19.9 % (10.5-14.5); WBC 19.9 thou/uL (4.0-11.0)
[2017-11-19 02:50] LABS: CALCIUM 8.4 mg/dL (8.5-10.1); CREATININE 2.2 mg/dL (0.7-1.3); MAGNESIUM 1.7 mg/dL (1.8-2.4); POTASSIUM 3.8 mmol/L (3.5-5.1)
[2017-11-19 04:50] VITALS: BP 116/77
[2017-11-19 08:00] VITALS: BP 150/73
[2017-11-19 11:36] VITALS: BP 130/75
[2017-11-19 19:49] VITALS: BP 153/69
[2017-11-20 03:24] VITALS: BP 145/76
[2017-11-20 06:49] LABS: HEMATOCRIT 31.5 % (42.0-52.0); HEMOGLOBIN 10.4 gm/dL (14.0-18.0); MCH 29.7 pg (26.0-34.0); MCHC 33.1 g/dL (28.0-37.0); MCV 89.7 fL (80.0-100.0); RBC 3.51 mil/uL (4.50-6.00); RDW 19.9 % (10.5-14.5); WBC 18.6 thou/uL (4.0-11.0)
[2017-11-20 07:12] LABS: CALCIUM 8.3 mg/dL (8.5-10.1); CREATININE 2.3 mg/dL (0.7-1.3); PHOSPHORUS 3.9 mg/dL (2.5-4.9); POTASSIUM 3.7 mmol/L (3.5-5.1)
[2017-11-20 07:50] VITALS: BP 155/73
[2017-11-20 11:46] VITALS: BP 134/56
[2017-11-20 15:25] VITALS: BP 144/52
[2017-11-20 15:54] LABS: PROT/CREAT RATIO 1.4; URINE CREATININE-RANDOM* 63.4 mg/dL; URINE PROTEIN-RANDOM* 86.7 mg/dL (<11.9)
[2017-11-20 20:26] VITALS: BP 164/62
[2017-11-20 23:10] LABS: ADENOVIRUS Negative (Negative); INFLUENZA A Negative (Negative); INFLUENZA B Negative (Negative); METAPNEUMOVIRUS Negative (Negative); PARAINFLUENZA 1 Negative (Negative); PARAINFLUENZA 2 Negative (Negative); PARAINFLUENZA 3 Negative (Negative); RHINOVIRUS Negative (Negative); RSV A Negative (Negative); RSV B Negative (Negative)
[2017-11-21 05:18] VITALS: BP 180/85
[2017-11-21 06:40] LABS: HEMATOCRIT 34.7 % (42.0-52.0); HEMOGLOBIN 11.4 gm/dL (14.0-18.0); MCH 29.6 pg (26.0-34.0); MCHC 32.8 g/dL (28.0-37.0); MCV 90.4 fL (80.0-100.0); PLATELET COUNT 129 thou/uL (150-400); RBC 3.84 mil/uL (4.50-6.00); RDW 20.2 % (10.5-14.5); WBC 19.2 thou/uL (4.0-11.0)
[2017-11-21 06:55] LABS: ALBUMIN 2.1 g/dL (3.4-5.0); CALCIUM 8.3 mg/dL (8.5-10.1); CREATININE 2.2 mg/dL (0.7-1.3); PHOSPHORUS 3.8 mg/dL (2.5-4.9); POTASSIUM 3.3 mmol/L (3.5-5.1)
[2017-11-21 07:05] VITALS: BP 162/71
[2017-11-21 07:44] LABS: ABSOLUTE NEUTROPHILS 17.3 thou/uL (1.4-8.2)
[2017-11-21 11:18] VITALS: BP 152/72
[2017-11-21 16:28] VITALS: BP 136/62
[2017-11-21 19:53] VITALS: BP 132/76
[2017-11-22 05:05] VITALS: BP 146/71
[2017-11-22 06:06] LABS: HEMATOCRIT 34.7 % (42.0-52.0); HEMOGLOBIN 11.2 gm/dL (14.0-18.0); MCH 29.3 pg (26.0-34.0); MCHC 32.2 g/dL (28.0-37.0); MCV 91.2 fL (80.0-100.0); RBC 3.81 mil/uL (4.50-6.00); RDW 20.5 % (10.5-14.5)
[2017-11-22 06:16] LABS: CREATININE 2.2 mg/dL (0.7-1.3); PHOSPHORUS 4.4 mg/dL (2.5-4.9); POTASSIUM 3.8 mmol/L (3.5-5.1)
[2017-11-22 08:15] VITALS: BP 160/82
[2017-11-22 12:28] VITALS: BP 174/72
[2017-11-22 22:00] VITALS: BP 147/74
[2017-11-23 03:23] LABS: ALBUMIN 2.1 g/dL (3.4-5.0); CALCIUM 8.1 mg/dL (8.5-10.1); CREATININE 2.1 mg/dL (0.7-1.3); PHOSPHORUS 4.9 mg/dL (2.5-4.9); POTASSIUM 3.9 mmol/L (3.5-5.1)
[2017-11-23 04:45] VITALS: BP 125/82; BP 145/89
[2017-11-23 07:26] VITALS: BP 178/78
[2017-11-23 11:18] VITALS: BP 156/73
[2017-11-23 15:29] VITALS: BP 187/83
[2017-11-23 19:46] VITALS: BP 173/66
[2017-11-24 00:19] VITALS: BP 143/61
[2017-11-24 04:39] VITALS: BP 136/57
[2017-11-24 04:58] LABS: ALBUMIN 2.1 g/dL (3.4-5.0); CREATININE 1.7 mg/dL (0.7-1.3); PHOSPHORUS 3.9 mg/dL (2.5-4.9); POTASSIUM 3.5 mmol/L (3.5-5.1)
[2017-11-24 08:27] VITALS: BP 169/59
[2017-11-24 11:25] VITALS: BP 172/94
[2017-11-24 15:14] VITALS: BP 188/72
[2017-11-24 19:53] VITALS: BP 184/61
[2017-11-25 00:28] VITALS: BP 150/62
[2017-11-25 04:07] LABS: CALCIUM 8.2 mg/dL (8.5-10.1); CREATININE 1.5 mg/dL (0.7-1.3); POTASSIUM 3.7 mmol/L (3.5-5.1)
[2017-11-25 04:41] LABS: HEMATOCRIT 33.8 % (42.0-52.0); MCH 29.5 pg (26.0-34.0); MCHC 32.6 g/dL (28.0-37.0); MCV 90.5 fL (80.0-100.0); RBC 3.73 mil/uL (4.50-6.00); RDW 19.7 % (10.5-14.5); WBC 8.4 thou/uL (4.0-11.0)
[2017-11-25 04:45] VITALS: BP 157/82
[2017-11-25 07:13] VITALS: BP 158/59
[2017-11-25 11:07] VITALS: BP 138/54
[2017-11-25] MEDS ORDERED: VANCOMYCIN HCL10 GM PO (13:13)
[2017-11-25] MEDS ORDERED: FLUCONAZOLE 10100 MG PO (13:14)
[2017-11-25] MEDS ORDERED: LASIX 20 MG TAB20 MG PO (13:15)
[2017-11-25] MEDS ORDERED: ROCEPHIN 11 GM/1001 IV (13:15)
[2017-11-25] MEDS ORDERED: VITAMIN D1000 UNI1 PO (13:16)
== END 2017-11-25 16:44 | DRG 871 ==
LOC: ER 09:50 → 2N 11:01 → EROBS 11:01 → 2N 18:30
PROVIDERS: Hospitalist; Internal Medicine; Internal Medicine Nephrology; Nurse Practitioner; Physician Assistant; Specialist
DX: A41.9 Sepsis, unspecified organism (principal); J96.00 Acute respiratory failure, unspecified whether with hypoxia or hypercapnia; J18.9 Pneumonia, unspecified organism; I50.33 Acute on chronic diastolic (congestive) heart failure; N17.9 Acute kidney failure, unspecified; L03.116 Cellulitis of left lower limb; J98.11 Atelectasis; I13.0 Hypertensive heart and chronic kidney disease with heart failure and stage 1 through stage 4 chronic kidney disease, or unspecified chronic kidney disease; F03.90 Unspecified dementia, unspecified severity, without behavioral disturbance, psychotic disturbance, mood disturbance, and anxiety; I48.91 Unspecified atrial fibrillation; N18.3 Chronic kidney disease, stage 3 (moderate); E78.5 Hyperlipidemia, unspecified; E87.6 Hypokalemia; R65.20 Severe sepsis without septic shock; E11.22 Type 2 diabetes mellitus with diabetic chronic kidney disease; I25.10 Atherosclerotic heart disease of native coronary artery without angina pectoris; D69.6 Thrombocytopenia, unspecified; R13.10 Dysphagia, unspecified; R19.7 Diarrhea, unspecified; Z85.028 Personal history of other malignant neoplasm of stomach; I25.2 Old myocardial infarction; Z90.49 Acquired absence of other specified parts of digestive tract; Z79.899 Other long term (current) drug therapy; Z79.82 Long term (current) use of aspirin; Z95.5 Presence of coronary angioplasty implant and graft
CPT/HCPCS: 10081